=== PATIENT | male | born 1980 | race Caucasian/White ===

== ENCOUNTER 2022-09-06 13:51 | Emergency (ER) | payer SELFPAY ==
--- NOTE | 2022-09-06 14:16 | NUR ---
PT STATING THAT HE NEEDS TO GO, STATING THAT HE'S HERE FOR AN MRI. INFORMED PT THAT THE HOSPITAL DOES NOT HAVE AN MRI. PT SEEN AMBULATING OUTSIDE OF THE HOSPITAL WITH CRUTCHES Addendum: 09/06/22 at 1441 by ELISEO PT INFORMED THAT HE HAS THE RIGHT TO STILL BE ASSESSED BY A DOCTOR, PT STATED THAT HE WILL BE GOING TO ANOTHER FACILITY OR TO HIS PCP FOR AN MRI
--- NOTE | 2022-09-06 14:17 | NUR ---
PATIENT LEFT WITHOUT BEING SEEN BY DR. AGUIRRE. NO FURTHER CARE PROVIDED FOR PATIENT.
== END 2022-09-06 14:17 | disposition left against medical advice (07) ==
LOC: MED 13:51
DX: M79.669 Pain in unspecified lower leg (principal); Z53.21 Procedure and treatment not carried out due to patient leaving prior to being seen by health care provider